=== PATIENT | male | born 1995 | race Caucasian/White ===

== ENCOUNTER 2017-01-15 03:46 | Observation (INO) | payer BC, MEDICAID ==
[2017-01-15 03:48] VITALS: BMI 22.8
--- NOTE | 2017-01-15 03:52 | ED PDOC ---
Arrival/HPI - General Chief Complaint: Alcohol Ingestion Time Seen by Provider: 01/15/17 03:52 Historian: Patient - History of Present Illness Narrative History of Present Illness (Text): 01/15/17 03:52 Gopal Figueroa is a 21 year old male, whose past medical history includes congenital adrenal hyperplasia, who presents to the ED brought in by EMS for difficulty breathing. Patient states he was drinking alcohol tonight and began feeling short of breath and nauseous when he attempted to go to sleep tonight. Patient states he feels fine currently. Patient states he has been compliant with his medication. Patient denies any fever, chills, chest pain, vomiting, diarrhea, urinary symptoms, back pain, neck pain, headache, dizziness, or any other complaints. Time/Duration: Other (tonight) Symptom Onset: Gradual Symptom Course: Unchanged Activities at Onset: Rest, Light Context: Home Past Medical History - Provider Review Nursing Documentation Reviewed: Yes - Tetanus Immunization Tetanus Immunization: Up to Date - Cardiac Hx Cardiac Disorders: Yes (high cholesterol) - Renal Hx Renal Disorder: Yes - Musculoskeletal/Rheumatological Hx Falls: No - Psychiatric Hx Depression: No Hx Emotional Abuse: No Hx Physical Abuse: No Hx Substance Use: No - Past Surgical History Past Surgical History: No Previous - Suicidal Assessment Feels Threatened In Home Enviroment: No Family/Social History - Physician Review Nursing Documentation Reviewed: Yes Family/Social History: No Known Family HX Hx Alcohol Use: No Hx Substance Use: No Hx Substance Use Treatment: No Allergies/Home Meds Allergies/Adverse Reactions: Allergies No Known Allergies Allergy (Verified 02/28/12 00:33) Home Medications: Home Meds Medication Instructions Recorded Confirmed Fludrocortisone [Florinef Acetate] 0.1 mg PO BID 02/28/12 01/15/17 Dexamethasone [Decadron] 4 mg PO DAILY 01/15/17 01/15/17 Review of Systems - Physician Review All systems were reviewed & negative as marked: Yes - Review of Systems Constitutional: Normal. absent: Fevers Eyes: Normal ENT: Normal Respiratory: SOB Cardiovascular: Normal. absent: Chest Pain Gastrointestinal: Nausea. absent: Abdominal Pain, Diarrhea, Vomiting Genitourinary Male: Normal. absent: Dysuria, Frequency, Hematuria, Urinary Output Changes Musculoskeletal: Normal Skin: Normal. absent: Rash Neurological: Normal. absent: Headache, Dizziness Endocrine: Normal Hemo/Lymphatic: Normal Psychiatric: Normal Physical Exam Vital Signs Reviewed: Yes Vital Signs Temp Pulse Resp BP Pulse Ox 01/15/17 05:50 89 18 112/64 96 01/15/17 04:50 82 20 115/75 97 01/15/17 03:55 98.1 F 98 H 16 130/76 100 Temperature: Afebrile Blood Pressure: Normal Pulse: Regular Respiratory Rate: Normal Appearance: Positive for: Well-Appearing, Non-Toxic, Comfortable Pain Distress: None Mental Status: Positive for: Alert and Oriented X 3 - Systems Exam Head: Present: Atraumatic, Normocephalic Pupils: Present: PERRL Extroacular Muscles: Present: EOMI Conjunctiva: Present: Normal Mouth: Present: Moist Mucous Membranes Neck: Present: Normal Range of Motion Respiratory/Chest: Present: Clear to Auscultation, Good Air Exchange. No: Respiratory Distress, Accessory Muscle Use Cardiovascular: Present: Regular Rate and Rhythm, Normal S1, S2. No: Murmurs Abdomen: Present: Normal Bowel Sounds. No: Tenderness, Distention, Peritoneal Signs Back: Present: Normal Inspection Upper Extremity: Present: Normal Inspection. No: Cyanosis, Edema Lower Extremity: Present: Normal Inspection. No: Edema Neurological: Present: GCS=15, CN II-XII Intact, Speech Normal Skin: Present: Warm, Dry, Normal Color. No: Rashes Psychiatric: Present: Alert, Oriented x 3, Normal Insight, Normal Concentration Medical Decision Making ED Course and Treatment: 01/15/17 03:52 Impression: 21 year old male complaining of nausea and shortness of breath tonight after drinking alcohol. Plan: -- Labs, alcohol level -- Reassess and disposition Progress Notes: - Lab Interpretations Lab Results: 01/15/17 04:05 01/15/17 04:05 Lab Results 01/15/17 04:05: WBC 10.8, RBC 5.09, Hgb 16.2, Hct 46.0, MCV 90.4, MCH 31.8, MCHC 35.2, RDW 12.4, Plt Count 316, MPV 9.7, Gran % 87.1 H, Lymph % (Auto) 8.7 L , [place] % (Auto) 4.2, Eos % (Auto) 0.0 L, Baso % (Auto) 0.0, Gran # 9.40 H, Lymph # 0.9 L, [place] # 0.5, Eos # 0.0, Baso # 0.00, Sodium 137, Potassium 5.2 H, Chloride 100, Carbon Dioxide 21, Anion Gap 21 H, BUN 17, Creatinine 0.8, Est GFR ( Amer) > 60, Est GFR (Non-Af Amer) > 60, Random Glucose 114 H, Calcium 10.1, Total Bilirubin 0.7, AST 25, ALT 19, Alkaline Phosphatase 84, Total Protein 7.9, Albumin 4.5, Globulin 3.4, Albumin/Globulin Ratio 1.3, Alcohol, Quantitative 126 H I have reviewed the lab results: Yes ED OBSERVATION Discharge: Yes Date of observation admission: 01/15/17 Time of observation admission: 04:41 - Observation admission statement Patient is being placed in observation because:: alcohol abuse - Goals of Observation Goals of observation are:: sobriety - Progress Note Progress Note: 01/15/17 04:40 Reviewed labs, alcohol level: 126. 01/15/17 05:41 Pt resting comfortably, no new complaints. On re-evaluation, the patient feels better and is in no acute distress. I have discussed the results and plan with the patient, who expresses understanding. Patient in agreement with plan to discharged home. Patient is stable for discharge. Patient was instructed to follow up with physician/clinic in 1-2 days or return if symptoms worsen or new concerning symptoms arise. - Scribe Statement The provider has reviewed the documentation as recorded by the Yeyo Griffiths Provider Attestation: All medical record entries made by the Raheelibcurt were at my direction and personally dictated by me. I have reviewed the chart and agree that the record accurately reflects my personal performance of the history, physical exam, medical decision making, and the department course for this patient. I have also personally directed, reviewed, and agree with the discharge instructions and disposition. Disposition/Present on Arrival - Present on Arrival Any Indicators Present on Arrival: No History of DVT/PE: No History of Uncontrolled Diabetes: No Urinary Catheter: No History Surgical Site Infection Following: None - Disposition Have Diagnosis and Disposition been Completed?: Yes Diagnosis: Alcohol intoxication Disposition: HOME/ ROUTINE Disposition Time: 05:40 Condition: GOOD
[2017-01-15 03:56] VITALS: TEMP 98.1
[2017-01-15 04:15] LABS: ADD MANUAL DIFF? NO
[2017-01-15 04:19] LABS: GRAN % 87.1 % (50.0-68.0); LYMPH # 0.9 (1.2-3.4); LYMPH % 8.7 % (22.0-35.0); MEAN CELL VOLUME 90.4 fL (80.0-105.0); MEAN CORPUSCULAR HEMOGLOBIN 31.8 pg (25.0-35.0); MEAN CORPUSCULAR HGB CONC 35.2 g/dl (31.0-37.0); MEAN PLATELET VOLUME 9.7 fl (7.0-11.0); MONO # 0.5 (0.1-0.6); MONO % 4.2 % (1.0-6.0); PLATELET COUNT 316 10^3/uL (120.0-450.0); RED CELL DISTRIBUTION WIDTH 12.4 % (11.5-14.5); WHITE BLOOD COUNT 10.8 10^3/ul (4.5-11.0)
[2017-01-15 04:28] LABS: ALB/GLOB RATIO 1.3 (1.1-1.8); ALKALINE PHOSPHATASE 84 U/L (38-133); ALT/SGPT 19 U/L (7-56); AST/SGOT 25 U/L (15-59); BILIRUBIN,TOTAL 0.7 mg/dL (0.2-1.3); BLOOD UREA NITROGEN 17 mg/dL (7-21); CALCIUM 10.1 mg/dL (8.4-10.5); CARBON DIOXIDE 21 mmol/L (21-33); CHLORIDE 100 mmol/L (98-107); GFR AFRICAN-AMERICAN > 60; GLUCOSE,RANDOM 114 mg/dL (70-110); POTASSIUM 5.2 mmol/L (3.6-5.0); SODIUM 137 mmol/L (132-148); TOTAL PROTEIN 7.9 g/dL (5.8-8.3)
[2017-01-15 05:57] VITALS: BP 112/64; PULSE 89; RESP 18; O2SAT 96
== END 2017-01-15 06:20 | disposition home or self-care (01) ==
LOC: ED 03:46 → EROBSV 04:41
PROVIDERS: ADMIT Emergency Medicine; ATTEND Emergency Medicine
DX: F10.129 Alcohol abuse with intoxication, unspecified (principal); Y90.6 Blood alcohol level of 120-199 mg/100 ml
CPT/HCPCS: 80053; 85025; 99283; G0480

== ENCOUNTER 2017-02-05 12:07 | Emergency (ER) | payer BC ==
[2017-02-05 12:37] VITALS: TEMP 98.8; O2SAT 100; BMI 23.8
[2017-02-05 12:51] LABS: ADD MANUAL DIFF? NO
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
[2017-02-05 12:59] LABS: BASO # 0.02 K/mm3 (0.0-2.0); BASO % 0.2 % (0.0-3.0); EOS # 0.2 (0.0-0.7); EOS % 1.7 % (1.5-5.0); GRAN # 5.05 (1.4-6.5); GRAN % 56.6 % (50.0-68.0); HEMATOCRIT 43.7 % (42.0-52.0); LYMPH # 2.8 (1.2-3.4); LYMPH % 31.8 % (22.0-35.0); MEAN CELL VOLUME 90.1 fL (80.0-105.0); MEAN CORPUSCULAR HEMOGLOBIN 31.5 pg (25.0-35.0); MEAN PLATELET VOLUME 10.1 fl (7.0-11.0); MONO # 0.9 (0.1-0.6); MONO % 9.7 % (1.0-6.0); PLATELET COUNT 311 10^3/uL (120.0-450.0); WHITE BLOOD COUNT 8.9 10^3/ul (4.5-11.0)
[2017-02-05 13:05] LABS: ALB/GLOB RATIO 1.3 (1.1-1.8); ALKALINE PHOSPHATASE 72 U/L (38-133); ALT/SGPT 33 U/L (7-56); AST/SGOT 26 U/L (15-59); BILIRUBIN,TOTAL 0.9 mg/dL (0.2-1.3); BLOOD UREA NITROGEN 12 mg/dL (7-21); CALCIUM 9.2 mg/dL (8.4-10.5); CARBON DIOXIDE 26 mmol/L (21-33); CHLORIDE 101 mmol/L (98-107); GFR AFRICAN-AMERICAN > 60; GLUCOSE,RANDOM 85 mg/dL (70-110); POTASSIUM 3.2 mmol/L (3.6-5.0); SODIUM 138 mmol/L (132-148)
[2017-02-05 15:29] LABS: URINE BILIRUBIN NEGATIVE (NEGATIVE); URINE BLOOD NEGATIVE (NEGATIVE); URINE GLUCOSE (UA) NEGATIVE (NEGATIVE); URINE KETONE NEGATIVE (NEGATIVE); URINE LEUKOCYTE ESTERASE NEGATIVE Leu/uL (NEGATIVE); URINE PROTEIN NEGATIVE mg/dL (<30 mg/dL); URINE UROBILINOGEN 0.2 E.U./dL (<1 E.U./dL)
[2017-02-05 15:31] LABS: URINE APPEARANCE CLEAR (CLEAR); URINE COLOR YELLOW (YELLOW)
[2017-02-05 16:11] VITALS: BP 120/65; PULSE 84; RESP 18
--- NOTE | 2017-02-06 09:06 | CARD ---
APPROVED REPORT EKG Measurement Heart [id number] <Conclusion> Normal sinus rhythm Normal ECG
== END 2017-02-05 16:00 | disposition home or self-care (01) ==
LOC: ED 12:07
DX: F91.9 Conduct disorder, unspecified (principal)
CPT/HCPCS: 80053; 81003; 85025; 90791; 93005; 99282; G0480

== ENCOUNTER 2017-02-12 01:23 | Emergency (ER) | payer BC ==
[2017-02-12 01:27] VITALS: BMI 23.6
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
[2017-02-12 02:57] VITALS: O2SAT 98
[2017-02-12 03:00] LABS: ADD MANUAL DIFF? NO
[2017-02-12 03:08] LABS: BASO # 0.01 K/mm3 (0.0-2.0); BASO % 0.2 % (0.0-3.0); EOS # 0.1 (0.0-0.7); EOS % 1.9 % (1.5-5.0); GRAN # 3.25 (1.4-6.5); GRAN % 54.8 % (50.0-68.0); HEMATOCRIT 42.4 % (42.0-52.0); LYMPH # 1.9 (1.2-3.4); LYMPH % 32.1 % (22.0-35.0); MEAN CELL VOLUME 88.3 fL (80.0-105.0); MEAN CORPUSCULAR HEMOGLOBIN 31.3 pg (25.0-35.0); MEAN CORPUSCULAR HGB CONC 35.4 g/dl (31.0-37.0); MEAN PLATELET VOLUME 10.1 fl (7.0-11.0); MONO # 0.7 (0.1-0.6); PLATELET COUNT 291 10^3/uL (120.0-450.0); RED CELL DISTRIBUTION WIDTH 11.9 % (11.5-14.5); WHITE BLOOD COUNT 5.9 10^3/ul (4.5-11.0)
[2017-02-12 03:15] LABS: ALB/GLOB RATIO 1.4 (1.1-1.8); ALKALINE PHOSPHATASE 72 U/L (38-133); ALT/SGPT 17 U/L (7-56); AST/SGOT 26 U/L (15-59); BILIRUBIN,TOTAL 0.8 mg/dL (0.2-1.3); BLOOD UREA NITROGEN 11 mg/dL (7-21); CALCIUM 9.6 mg/dL (8.4-10.5); CARBON DIOXIDE 22 mmol/L (21-33); CHLORIDE 101 mmol/L (95-110); GFR AFRICAN-AMERICAN > 60; GLUCOSE,RANDOM 77 mg/dL (70-110); POTASSIUM 3.2 mmol/L (3.6-5.0); SODIUM 137 mmol/L (132-148); TOTAL PROTEIN 6.9 g/dL (5.8-8.3)
[2017-02-12 06:19] VITALS: BP 126/78; PULSE 72; RESP 18; TEMP 97.9
== END 2017-02-12 06:20 ==
LOC: ED 01:23
DX: F43.10 Post-traumatic stress disorder, unspecified (principal)
CPT/HCPCS: 80053; 80074; 85025; 86703; 86706; 87390; 90791; 99285; G0480

== ENCOUNTER 2017-03-09 17:43 | Emergency (ER) | payer BC ==
[2017-03-09 18:17] VITALS: BMI 24.5
[2017-03-09 19:01] LABS: ADD MANUAL DIFF? NO
[2017-03-09 19:06] LABS: BASO # 0.01 K/mm3 (0.0-2.0); BASO % 0.1 % (0.0-3.0); EOS # 0.2 (0.0-0.7); EOS % 1.9 % (1.5-5.0); GRAN # 7.19 (1.4-6.5); HEMATOCRIT 40.8 % (42.0-52.0); LYMPH # 1.8 (1.2-3.4); LYMPH % 17.9 % (22.0-35.0); MEAN CELL VOLUME 90.7 fL (80.0-105.0); MEAN CORPUSCULAR HEMOGLOBIN 31.6 pg (25.0-35.0); MEAN CORPUSCULAR HGB CONC 34.8 g/dl (31.0-37.0); MEAN PLATELET VOLUME 9.8 fl (7.0-11.0); MONO # 0.8 (0.1-0.6); MONO % 8.1 % (1.0-6.0); PLATELET COUNT 264 10^3/uL (120.0-450.0); RED CELL DISTRIBUTION WIDTH 12.2 % (11.5-14.5)
[2017-03-09 19:16] LABS: ALB/GLOB RATIO 1.5 (1.1-1.8); ALKALINE PHOSPHATASE 71 U/L (38-133); ALT/SGPT 39 U/L (7-56); AST/SGOT 28 U/L (15-59); BILIRUBIN,TOTAL 0.7 mg/dL (0.2-1.3); BLOOD UREA NITROGEN 12 mg/dL (7-21); CALCIUM 9.3 mg/dL (8.4-10.5); CARBON DIOXIDE 28 mmol/L (21-33); CHLORIDE 100 mmol/L (95-110); GFR AFRICAN-AMERICAN > 60; GLUCOSE,RANDOM 75 mg/dL (70-110); POTASSIUM 4.1 mmol/L (3.6-5.0); SODIUM 136 mmol/L (132-148); TOTAL PROTEIN 6.4 g/dL (5.8-8.3)
[2017-03-09] MEDS ORDERED: TDAP Vaccine 0.5 mL Syr IM ONE (19:47)
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
[2017-03-10 02:07] LABS: PH,URINE 7.5 (4.7-8.0); URINE BILIRUBIN NEGATIVE (NEGATIVE); URINE BLOOD SMALL (NEGATIVE); URINE GLUCOSE (UA) NEGATIVE (NEGATIVE); URINE KETONE NEGATIVE (NEGATIVE); URINE LEUKOCYTE ESTERASE NEGATIVE Leu/uL (NEGATIVE); URINE PROTEIN NEGATIVE mg/dL (<30 mg/dL)
[2017-03-10 02:13] LABS: URINE APPEARANCE CLEAR (CLEAR); URINE COLOR YELLOW (YELLOW)
[2017-03-10 02:32] LABS: URINE WBC 0 - 2 /hpf (0-6)
[2017-03-10 02:33] LABS: URINE BACTERIA FEW (NEG)
[2017-03-10 05:31] VITALS: O2SAT 100
[2017-03-10] MEDS ORDERED: Amoxicillin-Clav 875-125 mg Tab PO STA (06:50)
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
--- NOTE | 2017-03-10 10:04 | CARD ---
APPROVED REPORT EKG Measurement Heart [id number] <Conclusion> Normal sinus rhythm with sinus arrhythmia Normal ECG No change
[2017-03-10 11:09] VITALS: BP 114/68; PULSE 88; RESP 16; TEMP 97.9
== END 2017-03-10 11:11 ==
LOC: ED 17:43
DX: S00.83XA Contusion of other part of head, initial encounter (principal); T14.8 Other injury of unspecified body region; Y04.0XXA Assault by unarmed brawl or fight, initial encounter; F41.8 Other specified anxiety disorders; J32.9 Chronic sinusitis, unspecified; R45.851 Suicidal ideations; Z23 Encounter for immunization; F17.210 Nicotine dependence, cigarettes, uncomplicated
CPT/HCPCS: 70450; 70486; 71010; 80053; 81001; 85025; 90471; 90715; 93005; 99285; G0480

== ENCOUNTER 2017-07-15 16:29 | Emergency (ER) | payer BC ==
[2017-07-15 16:29] VITALS: BMI 24.5
[2017-07-15 16:44] VITALS: RESP 16; TEMP 98.5
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
[2017-07-15] MEDS ORDERED: Sodium Chloride 0.9% 1,000 ML IV STA (17:45)
[2017-07-15 18:12] LABS: ALB/GLOB RATIO 1.5 (1.1-1.8); ALKALINE PHOSPHATASE 55 U/L (38-126); ALT/SGPT 35 U/L (7-56); AST/SGOT 28 U/L (17-59); BILIRUBIN,TOTAL 0.6 mg/dL (0.2-1.3); BLOOD UREA NITROGEN 15 mg/dL (7-21); CARBON DIOXIDE 27 mmol/L (21-33); CHLORIDE 104 mmol/L (98-107); GFR AFRICAN-AMERICAN > 60; GLUCOSE,RANDOM 69 mg/dL (70-110); MAGNESIUM 1.9 mg/dL (1.7-2.2); POTASSIUM 3.6 mmol/L (3.6-5.0); SODIUM 141 mmol/L (132-148)
[2017-07-15 18:14] LABS: BASO # 0.01 K/mm3 (0.0-2.0); BASO % 0.1 % (0.0-3.0); EOS # 0.1 (0.0-0.7); EOS % 1.7 % (1.5-5.0); GRAN # 4.86 (1.4-6.5); GRAN % 64.3 % (50.0-68.0); HEMATOCRIT 41.7 % (42.0-52.0); MEAN CELL VOLUME 90.3 fl (80.0-105.0); MEAN CORPUSCULAR HGB CONC 34.3 g/dl (31.0-37.0); MEAN PLATELET VOLUME 9.6 fl (7.0-11.0); MONO # 0.6 (0.1-0.6); MONO % 7.9 % (1.0-6.0); WHITE BLOOD COUNT 7.6 10^3/ul (4.5-11.0)
--- NOTE | 2017-07-15 18:16 | RAD ---
HISTORY: syncope COMPARISON: Comparison chest 03/09/2017. FINDINGS: LUNGS: No active pulmonary disease. PLEURA: No significant pleural effusion identified, no pneumothorax apparent. CARDIOVASCULAR: Normal. OSSEOUS STRUCTURES: No significant abnormalities. VISUALIZED UPPER ABDOMEN: Normal. OTHER FINDINGS: None. IMPRESSION: No active disease.
[2017-07-15 18:24] LABS: TROPONIN I < 0.01 ng/mL
[2017-07-15 19:07] VITALS: BP 124/85; PULSE 69; O2SAT 98
--- NOTE | 2017-07-15 19:48 | CT ---
EXAM: CT Head Without Intravenous Contrast EXAM DATE/TIME: 07/15/2017 5:44 PM CLINICAL HISTORY: The patient age is 21 years old and is male; Signs and symptoms; Syncope and collapse Facility exam id and description: Ct heads head w/o contrast TECHNIQUE: Axial computed tomography images of the head/brain without intravenous contrast. All CT scans at this facility use one or more dose reduction techniques, viz.: automated exposure control; ma/kV adjustment per patient size (including targeted exams where dose is matched to indication; i.e. head); or iterative reconstruction technique. COMPARISON: CT - HEAD W/O CONTRAST 03/09/2017 7:52:26 PM FINDINGS: Brain: The white-morgan differentiation is preserved demonstrating no acute territorial type infarct. No acute intracranial hemorrhage is seen. No edema. Midline shift: There is no midline shift. Ventricles: No ventriculomegaly. Bones/joints: The calvarium demonstrates no evidence for a depressed fracture. Soft tissues: No acute abnormality. Sinuses: Unremarkable as visualized. No acute sinusitis. Mastoid air cells: No mastoid effusion. Other findings: A small stable calcification is identified within the superior right frontal convexity. IMPRESSION: 1. No acute intracranial abnormality.
--- NOTE | 2017-07-16 12:13 | CARD ---
APPROVED REPORT EKG Measurement Heart [id number] IN [id number] <Conclusion> Sinus bradycardia Otherwise normal ECG
== END 2017-07-15 19:33 | disposition left against medical advice (07) ==
LOC: ED 16:29
DX: R55 Syncope and collapse (principal)
CPT/HCPCS: 70450; 71010; 80053; 82550; 83615; 83735; 84484; 85025; 93005; 99285; G0480; J7040

== ENCOUNTER 2018-10-08 16:32 | Emergency (ER) | payer BC, OTHER ==
[2018-10-08 16:32] VITALS: BMI 24.5
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
[2018-10-08] MEDS ORDERED: Sodium Chloride 0.9% 1,000 ML IV STA (17:39)
[2018-10-08] MEDS ORDERED: Sodium Chloride 0.9% 1,000 ML IV SCH (18:15)
[2018-10-08 18:43] LABS: BASO # 0.01 K/mm3 (0.0-2.0); BASO % 0.1 % (0.0-3.0); GRAN # 6.14 (1.4-6.5); GRAN % 74.7 % (50.0-68.0); HEMOGLOBIN 16.2 g/dL (14.0-18.0); LYMPH # 1.4 (1.2-3.4); LYMPH % 16.8 % (22.0-35.0); MEAN CELL VOLUME 90.9 fl (80.0-105.0); MEAN CORPUSCULAR HEMOGLOBIN 31.3 pg (25.0-35.0); MEAN CORPUSCULAR HGB CONC 34.5 g/dl (31.0-37.0); MEAN PLATELET VOLUME 9.8 fl (7.0-11.0); MONO # 0.7 (0.1-0.6); MONO % 8.4 % (1.0-6.0); RBC 5.17 10^6/uL (3.5-6.1); RED CELL DISTRIBUTION WIDTH 12.7 % (11.5-14.5); WHITE BLOOD COUNT 8.2 10^3/uL (4.5-11.0)
[2018-10-08 18:53] LABS: ALB/GLOB RATIO 1.3 (1.1-1.8); ALBUMIN 4.5 g/dL (3.0-4.8); ALT/SGPT 22 U/L (7-56); AST/SGOT 28 U/L (17-59); BLOOD UREA NITROGEN 20 mg/dL (7-21); CALCIUM 9.1 mg/dL (8.4-10.5); GFR NON-AFRICAN AMERICAN > 60; LIPASE 37 U/L (23-300)
--- NOTE | 2018-10-08 18:56 | RAD ---
HISTORY: cough and fatigue COMPARISON: Chest x-ray performed 07/15/17 TECHNIQUE: Chest, one view. FINDINGS: LUNGS: No focal consolidation. Please note that chest x-ray has limited sensitivity for the detection of pulmonary masses. PLEURA: No significant pleural effusion identified. No definite pneumothorax . CARDIOVASCULAR: Heart size appears within normal limits. No significant atherosclerotic calcification present. OSSEOUS STRUCTURES: No acute osseous abnormality identified. VISUALIZED UPPER ABDOMEN: Unremarkable. OTHER FINDINGS: None. IMPRESSION: No focal consolidation identified.
[2018-10-08 19:24] VITALS: RESP 18; O2SAT 99
[2018-10-08 22:18] VITALS: BP 118/68; PULSE 92; TEMP 99.5
== END 2018-10-08 20:01 | disposition home or self-care (01) ==
LOC: ED 16:32
DX: J11.1 Influenza due to unidentified influenza virus with other respiratory manifestations (principal); K52.9 Noninfective gastroenteritis and colitis, unspecified
CPT/HCPCS: 71045; 80053; 83690; 83735; 85025; 87804; 96361; 96374; 99283; J2405; J7030